=== PATIENT | male | born 1990 | race Caucasian/White ===

== ENCOUNTER 2018-02-07 13:22 | Emergency (ER) | payer BC, SELFPAY ==
[2018-02-07 13:40] VITALS: BP 146/90; PULSE 80; RESP 13; TEMP 36.8; O2SAT 98
--- NOTE | 2018-02-07 14:02 | ED.ANXIETY ---
HPI - Anxiety <JOEL Ordoñez - Last Filed: 02/07/18 22:41> General Chief Complaint: Anxiety Stated Complaint: LIGHT HEADED AND DIZZY, TROUBLE BREATHING Time Seen by Provider: 02/07/18 14:02 Source: patient Mode of arrival: ambulatory Limitations: no limitations History of Present Illness HPI narrative: Healthy 27-year-old male that is a nonsmoker here for complaint of lightheadedness dizziness and shortness of breath earlier today. He states that the. Lasted for about 10 min. He states that he just got out of a vehicle when it started. He denies any chest pain. He states he has had similar episodes in the past and has been diagnosed with having panic attacks in the past. He does state that he take a Xanax which did help his symptoms. He denies any symptoms at current timeframe. He has had no other symptoms or concerns at this point. He denies any increase in stress MD complaint: shortness of breath Related Data Home Medications Medication Instructions Recorded Confirmed No Known Home Medications 02/07/18 02/07/18 Allergies Allergy/AdvReac Type Severity Reaction Status Date / Time No Known Drug Allergies Allergy Verified 02/07/18 15:17 Review of Systems <JOEL Ordoñez - Last Filed: 02/07/18 22:41> Constitutional Denies chills, Denies fatigue, Denies fever(s), Denies lethargy and Denies weakness Eyes Denies change in vision, Denies eye discharge, Denies irritation and Denies loss of vision ENT Ears, Nose, Mouth, and Throat: Denies change in voice, Denies neck pain, Denies sore throat and Denies throat swelling Cardiovascular Reports lightheadedness and Reports dyspnea Respiratory Reports dyspnea and Denies wheezing Gastrointestinal Gastrointestinal: Denies abdominal pain, Denies change in bowel habits, Denies diarrhea, Denies nausea and Denies vomiting Genitourinary Denies hematuria, Denies flank pain, Denies urinary incontinence and Denies urinary urgency Musculoskeletal Denies neck pain Integumentary/Breasts Denies pruritus, Denies erythema, Denies rash and Denies wounds Neurologic Denies confusion, Denies loss of vision and Denies weakness Psychiatric Denies anxiety, Denies confusion, Denies depression, Denies homicidal ideation and Denies suicidal ideation Endocrine Denies fatigue and Denies flushing Hematologic/Lymphatic Denies easy bruising Allergic/Immunologic Denies urticaria, Denies throat swelling and Denies wheezing Exam <JOEL Ordoñez - Last Filed: 02/07/18 22:41> Initial Vital Signs Initial Vital Signs: Vital Signs Temperature 98.2 F 02/07/18 13:40 Pulse Rate 80 02/07/18 13:40 Respiratory Rate 13 02/07/18 13:40 Blood Pressure 146/90 H 02/07/18 13:40 Pulse Oximetry 98 02/07/18 13:40 Const General: cooperative and well developed Nutritional Appearance: well nourished Orientation: alert, awake, oriented x3 and not confused [facility] Mouth: oral mucosae normal and moist mucous membranes Eyes Conjunctivae: conjunctivae normal Sclera: sclerae normal Pupils: PERRL EOM: EOM intact bilaterally Resp Effort & Inspection: normal respiratory effort, able to speak in complete sentences, no respiratory distress and no use of accessory muscles Auscultation: clear to auscultation bilaterally, no rales, no rhonchi and no wheezes Cardio Rate: regular rate Rhythm: regular rhythm Heart Sounds: no click, no gallops, no murmurs and no rubs Pulses: normal peripheral pulses GI Inspection: non-distended Palpation: soft, no hepatosplenomegaly, No guarding, No pulsatile mass and No tender Auscultation: normal bowel sounds Skin General: no rashes or lesions noted, No jaundice and No petechiae Neuro General: alert, oriented x3, gait normal and no focal motor deficits Speech: speech normal <Trina Wheat DO - Last Filed: 02/08/18 17:18> Initial Vital Signs Initial Vital Signs: Vital Signs Temperature 98.2 F 02/07/18 13:40 Pulse Rate 80 02/07/18 13:40 Respiratory Rate 13 02/07/18 13:40 Blood Pressure 146/90 H 02/07/18 13:40 Pulse Oximetry 98 02/07/18 13:40 Scores <JOEL Ordoñez Last Filed: 02/07/18 22:41> HEART Score Heart Score history: Slightly Suspicious Heart Score EKG: Normal Heart Score Age: < 45 years old Heart Score risk factors: No known risk factors Heart Score troponin: < or = to normal limit Heart Score Total: 0 Course <JOEL Ordoñez - Last Filed: 02/07/18 22:41> Orders Ordered: ED Orders 02/07/18 13:41 EKG-12 Lead Stat 02/07/18 14:04 Complete Blood Count AUTO DIFF Stat Comprehensive Metabolic Panel Stat Lipase Stat Partial Thromboplastin Time Stat Prothrombin Time INR Stat Troponin & CK Cardiac Panel Stat 02/07/18 15:02 XR chest 1V Stat 02/07/18 16:21 Troponin I Stat Vital Signs - 8 hr 02/07/18 17:12 Pulse Rate 80 Respiratory Rate 12 Blood Pressure [Left Arm] 140/83 Pulse Oximetry 100 <Trina Wheat DO - Last Filed: 02/08/18 17:18> Orders Ordered: ED Orders 02/07/18 13:41 EKG-12 Lead Stat 02/07/18 14:04 Complete Blood Count AUTO DIFF Stat Comprehensive Metabolic Panel Stat Lipase Stat Partial Thromboplastin Time Stat Prothrombin Time INR Stat Troponin & CK Cardiac Panel Stat 02/07/18 15:02 XR chest 1V Stat 02/07/18 16:21 Troponin I Stat Vital Signs - 8 hr 02/07/18 17:12 Pulse Rate 80 Respiratory Rate 12 Blood Pressure [Left Arm] 140/83 Pulse Oximetry 100 MDM - Anxiety <JOEL Ordoñez - Last Filed: 02/07/18 22:41> Lab Data Result diagrams: 02/07/18 14:04 02/07/18 14:04 Lab Results 02/07/18 02/07/18 02/07/18 Range/Units 14:04 14:04 14:04 WBC 7.1 (4.5-11.0) X10^3/uL RBC 5.46 (4.5-5.9) X10^6/uL Hgb 16.1 (13.5-17.5) g/dL Hct 47.2 (41-53) % MCV 86.4 (80-100) fL MCH 29.5 (26-34) PG MCHC 34.1 (30-36) % RDW 12.2 (11.6-14.8) % Plt Count 337 (150-400) X10^3/uL Neut % (Auto) 69.7 (50-75) % Lymph % (Auto) 20.6 L (25-40) % [place] % (Auto) 7.7 (3-14) % Eos % (Auto) 1.5 L (2-4) % Baso % (Auto) 0.5 (0-2) % Neut # (Auto) 5000 (8635-3183) /uL PT 11.6 (10.1-12.7) SECONDS INR 1.0 (0.9-1.3) APTT 30 (26.4-36.2) SECONDS Sodium 140 (137-145) mmol/L Potassium 4.1 (3.4-5.1) mmol/L Chloride 100 (98-107) mmol/L Carbon Dioxide 29 (22-32) mmol/L BUN 17 (9-20) mg/dL Creatinine 0.90 (0.66-1.25) mg/dL Estimated GFR > 60.0 (>60) mL/min BUN/Creatinine Ratio 18.9 (6-22) Glucose 108 H (70-100) mg/dL Calcium 9.7 (8.4-10.2) mg/dL Total Bilirubin 2.0 H (0.2-1.3) mg/dL AST 27 (17-59) IU/L ALT 33 (21-72) IU/L Alkaline Phosphatase 64 (38-126) U/L Total Creatine Kinase 59 (55-170) U/L CK-MB (CK-2) TNP CK-MB (CK-2) Rel Index TNP Troponin I < 0.012 (0.01-0.034) ng/mL Total Protein 8.4 H (6.3-8.2) g/dL Albumin 4.9 (3.5-5.0) g/dL Globulin 3.5 (1.7-4.1) g/dL Albumin/Globulin Ratio 1.4 (1.0-2.8) Lipase 52 (23-300) U/L 02/07/ Range/Units 16:21 WBC (4.5-11.0) X10^3/uL RBC (4.5-5.9) X10^6/uL Hgb (13.5-17.5) g/dL Hct (41-53) % MCV (80-100) fL MCH (26-34) PG MCHC (30-36) % RDW (11.6-14.8) % Plt Count (150-400) X10^3/uL Neut % (Auto) (50-75) % Lymph % (Auto) (25-40) % [place] % (Auto) (3-14) % Eos % (Auto) (2-4) % Baso % (Auto) (0-2) % Neut # (Auto) (6533-6158) /uL PT (10.1-12.7) SECONDS INR (0.9-1.3) APTT (26.4-36.2) SECONDS Sodium (137-145) mmol/L Potassium (3.4-5.1) mmol/L Chloride (98-107) mmol/L Carbon Dioxide (22-32) mmol/L BUN (9-20) mg/dL Creatinine (0.66-1.25) mg/dL Estimated GFR (>60) mL/min BUN/Creatinine Ratio (6-22) Glucose (70-100) mg/dL Calcium (8.4-10.2) mg/dL Total Bilirubin (0.2-1.3) mg/dL AST (17-59) IU/L ALT (21-72) IU/L Alkaline Phosphatase (38-126) U/L Total Creatine Kinase (55-170) U/L CK-MB (CK-2) CK-MB (CK-2) Rel Index Troponin I < 0.012 (0.01-0.034) ng/mL Total Protein (6.3-8.2) g/dL Albumin (3.5-5.0) g/dL Globulin (1.7-4.1) g/dL Albumin/Globulin Ratio (1.0-2.8) Lipase (23-300) U/L Imaging Data Chest x-ray: Radiologist's impression: [address] [address] XRay Report Signed Patient: RENETTA MENDEZ MR#: [id number] : 1990 Acct:[id number] Age/Sex: 27 / M Date of Service: 02/07/18 Loc: Accession Number: [id number] Procedure: XR chest 1V Ordering Provider: Jairon Martin PROCEDURE: XR CHEST 1V INDICATIONS: chest pain TECHNIQUE: One view of the chest was acquired. COMPARISON: None. FINDINGS: Surgical changes and devices: None. Lungs and pleura: No pleural effusions or pneumothorax. Lungs are clear. Mediastinum: Mediastinal contours appear normal. Heart size is normal. Bones and chest wall: No suspicious bony lesions. Overlying soft tissues appear unremarkable. IMPRESSION: No acute cardiopulmonary pathology. Dictated by: Jose D Baldwin M.D. on 02/07/2018 at 15:30 Approved by: Jose D Baldwin M.D. on 02/07/2018 at 15:31 ECG Data Interpretation: EKG shows sinus rhythm with no ST elevation or depression. Lead 2 shows inverted P-waves. No other ectopy. EKG is consistent with prior EKG from 2017. Ventricular rate of 84. Pr interval of 158. QRS duration of 95. QTC of 384. MDM Narrative Medical decision making narrative: Patient with no symptoms at time of exam. Chest x-ray was obtained was negative. EKG shows sinus rhythm with no ST elevation or depression. EKG was consistent with prior EKG from 2017. Two sets of cardiac enzymes were obtained were unremarkable. CBC and Chem panel were negative for any acute findings. Patient was continued to not have any symptoms while he was in the emergency room after taking Xanax. His symptoms resolved. Suspect that this was an anxiety attack. He is encouraged to follow up with primary care for discussion of anxiety treatment. For any worsening symptoms return to the emergency room. <Trina Wheat, DO - Last Filed: 02/08/18 17:18> Lab Data Lab Results 02/07/18 02/07/18 02/07/18 Range/Units 14:04 14:04 14:04 WBC 7.1 (4.5-11.0) X10^3/uL RBC 5.46 (4.5-5.9) X10^6/uL Hgb 16.1 (13.5-17.5) g/dL Hct 47.2 (41-53) % MCV 86.4 (80-100) fL MCH 29.5 (26-34) PG MCHC 34.1 (30-36) % RDW 12.2 (11.6-14.8) % Plt Count 337 (150-400) X10^3/uL Neut % (Auto) 69.7 (50-75) % Lymph % (Auto) 20.6 L (25-40) % [place] % (Auto) 7.7 (3-14) % Eos % (Auto) 1.5 L (2-4) % Baso % (Auto) 0.5 (0-2) % Neut # (Auto) 5000 (8357-3695) /uL PT 11.6 (10.1-12.7) SECONDS INR 1.0 (0.9-1.3) APTT 30 (26.4-36.2) SECONDS Sodium 140 (137-145) mmol/L Potassium 4.1 (3.4-5.1) mmol/L Chloride 100 (98-107) mmol/L Carbon Dioxide 29 (22-32) mmol/L BUN 17 (9-20) mg/dL Creatinine 0.90 (0.66-1.25) mg/dL Estimated GFR > 60.0 (>60) mL/min BUN/Creatinine Ratio 18.9 (6-22) Glucose 108 H (70-100) mg/dL Calcium 9.7 (8.4-10.2) mg/dL Total Bilirubin 2.0 H (0.2-1.3) mg/dL AST 27 (17-59) IU/L ALT 33 (21-72) IU/L Alkaline Phosphatase 64 (38-126) U/L Total Creatine Kinase 59 (55-170) U/L CK-MB (CK-2) TNP CK-MB (CK-2) Rel Index TNP Troponin I < 0.012 (0.01-0.034) ng/mL Total Protein 8.4 H (6.3-8.2) g/dL Albumin 4.9 (3.5-5.0) g/dL Globulin 3.5 (1.7-4.1) g/dL Albumin/Globulin Ratio 1.4 (1.0-2.8) Lipase 52 (23-300) U/L 02/07/18 Range/Units 16:21 WBC (4.5-11.0) X10^3/uL RBC (4.5-5.9) X10^6/uL Hgb (13.5-17.5) g/dL Hct (41-53) % MCV (80-100) fL MCH (26-34) PG MCHC (30-36) % RDW (11.6-14.8) % Plt Count (150-400) X10^3/uL Neut % (Auto) (50-75) % Lymph % (Auto) (25-40) % [place] % (Auto) (3-14) % Eos % (Auto) (2-4) % Baso % (Auto) (0-2) % Neut # (Auto) (2364-6830) /uL PT (10.1-12.7) SECONDS INR (0.9-1.3) APTT (26.4-36.2) SECONDS Sodium (137-145) mmol/L Potassium (3.4-5.1) mmol/L Chloride (98-107) mmol/L Carbon Dioxide (22-32) mmol/L BUN (9-20) mg/dL Creatinine (0.66-1.25) mg/dL Estimated GFR (>60) mL/min BUN/Creatinine Ratio (6-22) Glucose (70-100) mg/dL Calcium (8.4-10.2) mg/dL Total Bilirubin (0.2-1.3) mg/dL AST (17-59) IU/L ALT (21-72) IU/L Alkaline Phosphatase (38-126) U/L Total Creatine Kinase (55-170) U/L CK-MB (CK-2) CK-MB (CK-2) Rel Index Troponin I < 0.012 (0.01-0.034) ng/mL Total Protein (6.3-8.2) g/dL Albumin (3.5-5.0) g/dL Globulin (1.7-4.1) g/dL Albumin/Globulin Ratio (1.0-2.8) Lipase (23-300) U/L Discharge Plan Departure Patient Disposition: Home Clinical Impression: Acute anxiety Discharge Date/Time: 02/07/18 17:37 Interventions: ED Discharge Assessment Last Done: 02/07/18 17:36 Instructions: DI for Anxiety -- Adult Activity Restrictions/Additional Instructions: EKG chest x-ray and laboratory results today were unremarkable today. Signs and symptoms presents as a anxiety attack. Follow up with her primary care provider for discussion of anxiety treatment. Try relaxation techniques such as deep breathing exercises if you have similar symptoms. Return emergency room for any worsening symptoms. Prescriptions: No Action No Known Home Medications RF: 0 Referrals: [facility] [Provider Group] <Trina Wheat DO - Last Filed: 02/08/18 17:18> Cosign ED Attending Cosignature Attestation: I was immediately available in the department for consultation. EKG was reviewed by myself and discussed with Jairon. This documentation has been reviewed and I agree with assessment and plan. Supervised by Trina Wheat DO
--- NOTE | 2018-02-07 15:02 | DI.RAD.S_ITS ---
PROCEDURE: XR CHEST 1V INDICATIONS: chest pain TECHNIQUE: One view of the chest was acquired. COMPARISON: None. FINDINGS: Surgical changes and devices: None. Lungs and pleura: No pleural effusions or pneumothorax. Lungs are clear. Mediastinum: Mediastinal contours appear normal. Heart size is normal. Bones and chest wall: No suspicious bony lesions. Overlying soft tissues appear unremarkable. IMPRESSION: No acute cardiopulmonary pathology. Dictated by: Jose D Baldwin M.D. on 02/07/2018 at 15:30 Approved by: Jose D Baldwin M.D. on 02/07/2018 at 15:31
[2018-02-07 15:08] LABS: Add Manual Diff / Slide Review NO; Basophils Percent Auto 0.5 % (0-2); Eosinophils Percent Auto 1.5 % (2-4); Hematocrit 47.2 % (41-53); Hemoglobin 16.1 g/dL (13.5-17.5); Lymphocytes Percent Auto 20.6 % (25-40); Mean Corpuscular HGB Conc 34.1 % (30-36); Mean Corpuscular Hemoglobin 29.5 PG (26-34); Mean Corpuscular Volume 86.4 fL (80-100); Monocytes Percent Auto 7.7 % (3-14); Neutrophils Absolute Auto 5000 /uL (1500-7000); Neutrophils Percent Auto 69.7 % (50-75); Platelet Count 337 X10^3/uL (150-400); Red Blood Cell Count 5.46 X10^6/uL (4.5-5.9); Red Cell Distribution Width 12.2 % (11.6-14.8); White Blood Cell Count 7.1 X10^3/uL (4.5-11.0)
[2018-02-07 15:10] LABS: Prothrombin Time 11.6 SECONDS (10.1-12.7)
[2018-02-07 15:13] LABS: PTT Partial Thromboplastin Tim 30 SECONDS (26.4-36.2)
[2018-02-07 15:16] LABS: Alanine Aminotransferase 33 IU/L (21-72); Albumin 4.9 g/dL (3.5-5.0); Albumin Globulin Ratio 1.4 (1.0-2.8); Alkaline Phosphatase 64 U/L (38-126); Aspartate Aminotransferase 27 IU/L (17-59); BUN Creatinine Ratio 18.9 (6-22); Blood Urea Nitrogen 17 mg/dL (9-20); Calcium 9.7 mg/dL (8.4-10.2); Carbon Dioxide 29 mmol/L (22-32); Chloride 100 mmol/L (98-107); Creatine Kinase 59 U/L (55-170); Estimated Glomerular Filt Rate > 60.0 mL/min (>60); Globulin 3.5 g/dL (1.7-4.1); Glucose 108 mg/dL (70-100); HEMOLYSIS < 15 (0-50); Lipase 52 U/L (23-300); Potassium 4.1 mmol/L (3.4-5.1); Sodium 140 mmol/L (137-145); Total Protein 8.4 g/dL (6.3-8.2)
[2018-02-07 15:31] LABS: Troponin I < 0.012 ng/mL (0.01-0.034)
[2018-02-07 16:52] LABS: Troponin I < 0.012 ng/mL (0.01-0.034)
[2018-02-07 17:12] VITALS: BP 140/83; PULSE 80; RESP 12; O2SAT 100
== END 2018-02-07 17:37 | disposition home or self-care (01) ==
PROVIDERS: Emergency Provider Nurse Practitioner Family
DX: F41.9 Anxiety disorder, unspecified (principal)
CPT/HCPCS: 36415; 71045; 80053; 82550; 83690; 84484; 85025; 85610; 85730; 93005; 99282; 99285